=== PATIENT | female | born 1990 | race Caucasian/White ===

== ENCOUNTER 2018-02-08 07:19 | Inpatient (IN) | payer OTHER ==
[~2018-02-08] VITALS: Ht 157.5 cm; Wt 147.0 kg
[2018-02-08] MEDS ORDERED: PRENATAL 19 TA1 EACH PO (10:24)
[2018-02-10] MEDS ORDERED: PRENATAL 19 TA1 EACH PO (09:16)
== END 2018-02-10 17:33 | DRG 775 ==
LOC: OB/GYN 07:19 → LDR 07:19 → OB/GYN 17:30
PROC: 10E0XZZ Delivery of Products of Conception, External Approach (ICD-10-PCS; principal; 2018-02-08)
PROC: 4A1HXCZ Monitoring of Products of Conception, Cardiac Rate, External Approach (ICD-10-PCS; 2018-02-08)
DX: O69.81X0 Labor and delivery complicated by cord around neck, without compression, not applicable or unspecified (principal); Z3A.39 39 weeks gestation of pregnancy; Z37.0 Single live birth